=== PATIENT | female | born 1990 | race Caucasian/White ===

== ENCOUNTER → 2019-03-17 15:22 | Outpatient (CLI) | payer BC, SELFPAY ==
--- NOTE | 2019-03-17 15:25 | CT_ITS ---
STUDY: CT CHEST WITH CONTRAST REASON FOR EXAM: Female, 28 years old. Shortness of breath with exertion history of asthma RADIATION DOSAGE (If Supplied By Facility): CTDIvol = ( 14.94 ) mGy, DLP = ( 1082.08 ) mGycm TECHNIQUE: Transaxial imaging was performed following intravenous administration of 75 IV Isovue 300. Multiplanar coronal and sagittal images were reformatted. Individualized dose optimization techniques were used for this CT. COMPARISON: None. FINDINGS: There is no focal consolidation pleural effusion pulmonary edema or pneumothorax. There is no demonstrated pleural abnormality. Normal heart and pericardium. There is minimal residual thymus material. Normal hilar regions. Normal enhanced pulmonary arteries. Normal aorta arch and descending thoracic aorta. Normal osseous structures. There is no demonstrated abnormality of the visualized upper abdomen. CT/Chest WITH Contrast IMPRESSION: Normal enhanced CT Chest examination. Electronically Signed: Leatha Richmond MD at 1:09 EDT Tel , Service support ,
--- NOTE | 2019-03-17 15:25 | CT_ITS ---
STUDY: CT SOFT TISSUE NECK WITH CONTRAST REASON FOR EXAM: Female, 28 years old. Shortness of breath with exertion RADIATION DOSAGE (If Supplied By Facility): CTDIvol = ( 14.94 ) mGy, DLP = ( 1082.08 ) mGycm TECHNIQUE: The patient was scanned in a multi-detector CT scanner. High resolution transaxial imaging was performed following intravenous administration of 75 IV Isovue 300. Sagittal and coronal images were reconstructed. Individualized dose optimization techniques were used for this CT. COMPARISON: None. FINDINGS: Normal bilateral parotid glands. Normal bilateral adjunct professor of voice spaces. Normal bilateral parapharyngeal spaces. Normal bilateral carotid spaces. Normal bilateral sublingual and submandibular glands and spaces. Normal visualized nasopharynx. Normal retropharyngeal space. Normal perivertebral space. Normal visualized bilateral faucial tonsils. The visualized tongue, tongue base and oropharynx are normal. The visualized cervical lymph nodes (levels I-) are within normal size limits, and maintain normal morphology. There is no demonstrated solid or cystic mass lesion. There is no abnormal contrast enhancement. Normal epiglottis, bilateral vallecula and hypopharynx. The pre-epiglottic and paraglottic adipose spaces are normal. Normal visualized bilateral piriform sinuses, aryepiglottic folds, vocal cords, and arytenoid-cricoid articulations. There is slight narrowing of the trachea in the subglottic region measuring 9 mm AP versus just below this level measuring 1.3 cm. Normal bilateral lobes of the thyroid gland. Normal visualized pulmonary apices. Normal visualized paranasal sinuses. Normal visualized cervical spine. CT/Soft Tissue Neck WITH Contrast IMPRESSION: Appearance of slight subglottic tracheal narrowing as detailed above. Remainder the exam is within normal limits Electronically Signed: Levar Matthews DO at 16:42 EDT Tel , Service support ,
== END ==
PROVIDERS: Family Provider Family Medicine; PCP Family Medicine; Referring Provider Internal Medicine Pulmonary Disease; Visit Provider Internal Medicine Pulmonary Disease
DX: R06.00 Dyspnea, unspecified (principal); J38.6 Stenosis of larynx
CPT/HCPCS: 70491; 71260; Q9967

== ENCOUNTER 2019-03-19 10:46 | Day surgery (SDC) | payer BC, SELFPAY ==
[2019-03-19] VITALS (9 sets, daily range): BP systolic 89–121; BP diastolic 53–84; PULSE 87–117; RESP 16–18; TEMP 36.6–36.9; O2SAT 95–100; BMI 27.1
[2019-03-19 11:03] LABS: Internal QC Validated? YES +Cl - CLEAR BKGD
[2019-03-19 11:06] LABS: Pregnancy, Urine Negative Negative
--- NOTE | 2019-03-19 12:06 | SUR.OPER ---
DR. WEST IN ENDO ROOM OBSERVING CASE.
--- NOTE | 2019-03-19 13:09 | OP.ENDO_ITS ---
Patient Name: Misty Tomlin Procedure Date: 03/19/2019 11:29 AM Date of : 1990 Age: 28 Procedure: Bronchoscopy Indications: Suspicious trachea lesion Providers: Robert Lee MD Referring MD: Filiberto Schulte Medicines: Lidocaine applied to nares and subglottic space, Albuterol nebulizer 2.5 mg Complications: No immediate complications Procedure: Pre-Anesthesia Assessment: - A History and Physical has been performed. Patient meds and allergies have been reviewed. The risks and benefits of the procedure and the sedation options and risks were discussed with the patient. All questions were answered and informed consent was obtained. Patient identification and proposed procedure were verified prior to the procedure by the physician. Mental Status Examination: alert and oriented. Airway Examination: normal oropharyngeal airway. Respiratory Examination: clear to auscultation. CV Examination: normal. ASA Grade Assessment: I - A normal healthy patient. After reviewing the risks and benefits, the patient was deemed in satisfactory condition to undergo the procedure. The anesthesia plan was to use monitored anesthesia care (MAC). Immediately prior to administration of medications, the patient was re-assessed for adequacy to receive sedatives. The heart rate, respiratory rate, oxygen saturations, blood pressure, adequacy of pulmonary ventilation, and response to care were monitored throughout the procedure. The physical status of the patient was re-assessed after the procedure. After I obtained informed consent, the scope was passed under direct vision. Throughout the procedure, the patient's blood pressure, pulse, and oxygen saturations were monitored continuously. The bronchoscope was introduced through the mouth and advanced to the tracheobronchial tree of both lungs. Findings: Trachea/Nay Abnormalities: Erythema was found in the upper trachea. Erythema was found in the subglottic area. Impression: - Suspicious trachea lesion - Erythema was present in the upper trachea. - Erythema was present in the subglottic area. - No specimens collected. - A stricture was found. The lesion has a benign appearance. - Upper tracheal ring noted w/ dynamic narrowing. Looked to be below the Cricoid. Small web seen. Area was bleeding after scope passed and pt coughed Recommendation: - The patient will be observed post-procedure, until all discharge criteria are met. - Await test results. Procedure Code(s): --- Professional --- 59626, Bronchoscopy, rigid or flexible, including fluoroscopic guidance, when performed; diagnostic, with cell washing, when performed (separate procedure) Diagnosis Code(s): --- Professional --- J98.4, Other disorders of lung R09.89, Other specified symptoms and signs involving the circulatory and respiratory systems R93.8, Abnormal findings on diagnostic imaging of other specified body structures CPT copyright 2017 [employer]. All rights reserved. The codes documented in this report are preliminary and upon sled maker review may be revised to meet current compliance requirements. MD Robert Soler MD 03/19/2019 1:08:48 PM This report has been signed electronically. Number of Addenda: 0 Note Initiated On: 03/19/2019 11:29 AM
== END 2019-03-19 14:30 | disposition home or self-care (01) ==
LOC: EN 10:47 → AC 10:49
PROVIDERS: Anesthesiology; Family Provider Family Medicine; PCP Family Medicine; Referring Provider Family Medicine; Visit Provider Internal Medicine Pulmonary Disease
PROC: 0BJ08ZZ Inspection of Tracheobronchial Tree, Via Natural or Artificial Opening Endoscopic (ICD-10-PCS; CPT 31622; principal; 2019-03-19 11:45)
DX: J98.4 Other disorders of lung (principal); R06.1 Stridor; J30.9 Allergic rhinitis, unspecified; R09.89 Other specified symptoms and signs involving the circulatory and respiratory systems; Z79.899 Other long term (current) drug therapy
CPT/HCPCS: 00520; 31622; 81025; J7120; J2405

== ENCOUNTER → 2022-05-25 | Outpatient (CLI) | payer BC, OTHER, SELFPAY ==
[2022-05-25 15:06] LABS: Absolute Lymphocyte Count 2.89 X10^3/uL (0.83-4.51); Absolute Neutrophil Count 8.5 X10^3/uL (2.0-7.7); Basophil# 0.03 X10^3/uL; Basophil% 0.2 % (0-1); Eosinophil# 0.07 X10^3/uL; Eosinophils% 0.6 % (0-5); Hematocrit 37.3 % (37-47); Hemoglobin 12.5 g/dL (12.0-15.0); Lymphocyte # 2.89 X10^3/ul (0.83-4.51); Lymphocyte % 23.9 % (19-41); Mean Corp Hgb Conc 33.5 g/dL (32-36); Mean Corpuscular Hgb 29.8 pg (27.0-32.0); Mean Corpuscular Volume 88.8 fL (81-99); Mean Platelet Vol. 10.3 fl (6.2-12.0); Monocyte# 0.59 X10^3/uL; Monocyte% 4.9 % (0-10); NRBC Flagged by Analyzer 0 % (0-5); Neutrophil # 8.45 X10^3/uL (2.7-7.7); Neutrophil % 70.1 % (47-70); Platelet Count 288 K/mm3 (150-450); RBC Distribution Width CV 12.1 % (11.6-14.6); RBC Distribution Width SD 38.9 fl (35.1-43.9); White Blood Count 12.1 K/mm3 (4.4-11.0)
[2022-05-25 16:23] LABS: HIV - WCH Non-Reactive (Nonreactive); Hepatitis B Surface Antigen Non-Reactive (Nonreactive); Hepatitis C Antibody Non-Reactive (Nonreactive); Rubella IgG Reactive (Nonreactive); Syphilis Antibodies Non-reactive
[2022-05-25 17:20] LABS: Amphetamine Urine VISTA NEGATIVE (<1000 ng/mL); Barbiturate Urine VISTA NEGATIVE (< 200 ng/mL); Benzodiazepine Urine VISTA NEGATIVE (< 200 ng/mL); Cocaine Urine VISTA NEGATIVE (< 300 ng/mL); Ecstacy Urine VISTA NEGATIVE (< 500 ng/mL); Methadone Urine VISTA NEGATIVE (< 300 ng/mL); PCP Urine VISTA NEGATIVE (< 25 ng/mL); THC Urine VISTA NEGATIVE (< 50 ng/mL); Vista UDS pH Range 7
[2022-05-30 04:07] LABS: Chlamydia By Nucleic Acid AMP Negative (Negative)
[2022-05-30 17:51] LABS: Gonococcus By Nucleic Acid AMP Negative (Negative)
[2022-06-06 13:23] LABS: HPV Genotype 16, Aptima Negative (Negative)
[2022-06-06 17:54] LABS: HPV APTIMA, High Risk Positive (Negative); HPV Genotype 18,45 Aptima Negative (Negative)
== END | disposition home or self-care (01) ==
PROVIDERS: PCP Family Medicine; Visit Provider Obstetrics & Gynecology
DX: Z34.81 Encounter for supervision of other normal pregnancy, first trimester (principal); Z12.4 Encounter for screening for malignant neoplasm of cervix
CPT/HCPCS: 36415; 80307; 85025; 86703; 86762; 86780; 86803; 86850; 86900; 86901; 87086; 87340; 87491; 87591; 87624; 88175; G0145

== ENCOUNTER → 2022-09-15 | Outpatient (CLI) | payer BC, OTHER, SELFPAY ==
[2022-09-15 15:44] LABS: Absolute Lymphocyte Count 2.31 X10^3/uL (0.83-4.51); Absolute Neutrophil Count 7.1 X10^3/uL (2.0-7.7); Basophil# 0.03 X10^3/uL; Basophil% 0.3 % (0-1); Eosinophil# 0.08 X10^3/uL; Eosinophils% 0.8 % (0-5); Hematocrit 31.3 % (37-47); Hemoglobin 10.2 g/dL (12.0-15.0); Lymphocyte # 2.31 X10^3/ul (0.83-4.51); Mean Corp Hgb Conc 32.6 g/dL (32-36); Mean Corpuscular Hgb 29.4 pg (27.0-32.0); Mean Corpuscular Volume 90.2 fL (81-99); Mean Platelet Vol. 10.5 fl (6.2-12.0); Monocyte# 0.47 X10^3/uL; Monocyte% 4.7 % (0-10); NRBC Flagged by Analyzer 0 % (0-5); Neutrophil # 7.13 X10^3/uL (2.7-7.7); Neutrophil % 70.8 % (47-70); Platelet Count 258 K/mm3 (150-450); RBC Distribution Width CV 13.2 % (11.6-14.6); RBC Distribution Width SD 43.3 fl (35.1-43.9); Red Blood Count 3.47 M/mm3 (4.2-5.4); White Blood Count 10.1 K/mm3 (4.4-11.0)
[2022-09-15 16:08] LABS: Glucose Challenge Gest 1H 50g 109 mg/dL (70-140)
[2022-09-15 16:42] LABS: HIV - WCH Non-Reactive (Nonreactive); Syphilis Antibodies Non-reactive
== END | disposition home or self-care (01) ==
LOC: LAB 15:10
PROVIDERS: PCP Family Medicine; Visit Provider Obstetrics & Gynecology
DX: O09.90 Supervision of high risk pregnancy, unspecified, unspecified trimester (principal); Z3A.00 Weeks of gestation of pregnancy not specified; Z13.1 Encounter for screening for diabetes mellitus
CPT/HCPCS: 36415; 82950; 85025; 86703; 86780

== ENCOUNTER → 2022-11-28 | Outpatient (CLI) | payer BC, OTHER, SELFPAY ==
[2022-11-28 16:30] LABS: Absolute Lymphocyte Count 2.64 X10^3/uL (0.83-4.51); Basophil# 0.03 X10^3/uL; Basophil% 0.3 % (0-1); Eosinophil# 0.05 X10^3/uL; Eosinophils% 0.4 % (0-5); Hemoglobin 10.1 g/dL (12.0-15.0); Lymphocyte # 2.64 X10^3/ul (0.83-4.51); Lymphocyte % 23.2 % (19-41); Mean Corp Hgb Conc 31.6 g/dL (32-36); Mean Corpuscular Hgb 28.6 pg (27.0-32.0); Mean Corpuscular Volume 90.7 fL (81-99); Mean Platelet Vol. 10.7 fl (6.2-12.0); Monocyte# 0.56 X10^3/uL; Monocyte% 4.9 % (0-10); NRBC Flagged by Analyzer 0 % (0-5); Neutrophil # 8.04 X10^3/uL (2.7-7.7); Neutrophil % 70.8 % (47-70); Platelet Count 224 K/mm3 (150-450); RBC Distribution Width CV 13.4 % (11.6-14.6); RBC Distribution Width SD 43.8 fl (35.1-43.9); Red Blood Count 3.53 M/mm3 (4.2-5.4); White Blood Count 11.4 K/mm3 (4.4-11.0)
== END | disposition home or self-care (01) ==
PROVIDERS: PCP Family Medicine; Referring Provider Nurse Practitioner Women's Health; Visit Provider Nurse Practitioner Women's Health
DX: O09.90 Supervision of high risk pregnancy, unspecified, unspecified trimester (principal); Z3A.00 Weeks of gestation of pregnancy not specified
CPT/HCPCS: 36415; 85025; 87081

== ENCOUNTER → 2022-12-13 | Outpatient (CLI) | payer BC, OTHER, SELFPAY ==
--- NOTE | 2022-12-13 18:18 | US_ITS ---
STUDY: SECOND AND THIRD TRIMESTER OBSTETRICAL ULTRASOUND - LIMITED REASON FOR EXAM: Female, 32 years old GROWTH LMP: PRIOR ULTRASOUND: None. TECHNIQUE: Transabdominal TECHNICAL QUALITY: Adequate. FINDINGS: There is a single intrauterine fetus. The fetus is in a cephalic presentation. There is demonstrated cardiac activity with a heart rate of 126 bpm. There is a normal amniotic fluid volume. The largest amniotic fluid pocket measures 4.3 x 3.5 cm. The amniotic fluid index (JEVON) is 14.3 cm. The placenta is posterior and not low-lying There are Grade 1 placental changes. The cervix measures 2.8 cm in length. BIOMETRY: BPD: 8.83 cm: 35 weeks, 5 days HC: 32.6 cm: 37 weeks, 2 days AC: 33.09 cm: 37 weeks, 0 days FL: 6.65 cm: 34 weeks, 2 days Age by LMP: 38 weeks, 6 days. TODD by LMP: December 21, 2022. age by current US: 36 weeks, 1 days. TODD by current US: February 08, 2023. Estimated weight: 2867 grams, +/- 430 grams, 12 percentile. US/OB Limited With Biometrics IMPRESSION: Viable intrauterine gestation approximately 36 weeks gestational age. No significant abnormality Electronically Signed: Dallas Slade MD at 20:32 EDT ,
== END | disposition home or self-care (01) ==
LOC: US 18:16
PROVIDERS: PCP Family Medicine; Visit Provider Registered Nurse
DX: Z36.89 Encounter for other specified antenatal screening (principal)
CPT/HCPCS: 76816

== ENCOUNTER 2022-12-22 18:58 | Inpatient (IN) | payer BC, OTHER, SELFPAY ==
[2022-12-22] VITALS (11 sets, daily range): BP systolic 111–134; BP diastolic 62–88; PULSE 86–104; TEMP 36.5–37; O2SAT 100; BMI 30.7
[2022-12-22 19:28] LABS: Absolute Lymphocyte Count 1.97 X10^3/uL (0.83-4.51); Absolute Neutrophil Count 11.7 X10^3/uL (2.0-7.7); Basophil# 0.02 X10^3/uL; Basophil% 0.1 % (0-1); Eosinophil# 0.04 X10^3/uL; Eosinophils% 0.3 % (0-5); Hematocrit 34.2 % (37-47); Lymphocyte # 1.97 X10^3/ul (0.83-4.51); Lymphocyte % 13.6 % (19-41); Mean Corp Hgb Conc 32.2 g/dL (32-36); Mean Corpuscular Hgb 28.6 pg (27.0-32.0); Mean Corpuscular Volume 88.8 fL (81-99); Mean Platelet Vol. 11.3 fl (6.2-12.0); Monocyte# 0.64 X10^3/uL; Monocyte% 4.4 % (0-10); NRBC Flagged by Analyzer 0 % (0-5); Platelet Count 250 K/mm3 (150-450); RBC Distribution Width CV 13.8 % (11.6-14.6); RBC Distribution Width SD 44.5 fl (35.1-43.9); Red Blood Count 3.85 M/mm3 (4.2-5.4); White Blood Count 14.5 K/mm3 (4.4-11.0)
[2022-12-22] MEDS: Lactated Ringers 1,000 ML 50 ML IV (19:30)
[2022-12-22] MEDS: Oxytocin 10 UNITS/ML Vial IM (19:53)
[2022-12-22] MEDS: Oxytocin 15 Units/NS 250ml 15 UNITS/250 ML IV.SOLN 83 UNITS IV (19:53)
[2022-12-22 20:01] LABS: Syphilis Antibodies Non-reactive
--- NOTE | 2022-12-22 20:04 | HP.PCM.OB_ITS ---
HPI - General General Date of Admission: 12/22/22 HPI Narrative NIKKY MENDOZA, is a 32 F who presents IAL delivers precipitously within an hour Maternal Data Information TODD Calculator Estimated Delivery Date Method Current WG Current Estimate 12/21/22 LMP (Certain) 40w 1d PFSH PFSH Medical History HPV test positive Hx of abnormal cervical Pap smear Idiopathic subglottic tracheal stenosis Seasonal allergies Home Medications vitamins no.163-iron bis-gly 20 mg-folate no.10 1 mg tablet (PNV Tabs 20-1) tab PO 05/23/22 [History Last Taken Unknown] Allergy/AdvReac Type Severity Reaction Status Date / Time No Known Allergies Allergy Verified 12/22/22 19:19 Family History no significant family his Surgical History no surgical history Social History adopted: No household members: spouse and children housing: house number of children: 2 current occupational status: employed 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 pets and animals: Yes (not managing litterbox) pets and animals: cat(s) and dog(s) history of recent travel: No sexually active: Yes Smoking Status: Never smoker alcohol intake: never substance use type: does not use well-balanced diet: about half the time caffeine: No eating out: 1-3 times/week during the past year weight has: remained stable what type of physical activity do you participate in: none nelly/gnosticist: Baptism seatbelt use: always do you feel safe at home: Yes additional social history: - 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 Date Name GA/Weeks Outcome Route Bth Weight Infant Gen Labor Lgth Anesthesia Del Locatn Provider FOB 12/20/17 Emir 38 live - full term 7#7oz Male 14 ho urs epidural Radha Talbot 12/26/20 Dora 39 live - full term 8#1oz Female 16 liz rs epidural Radha Talbot Visit Details Expected Delivery Route/Plan Labor Preferences- CB/BF classes: no labor support person: Antione labor intervention preferences: [] pain management options preferred: epidural cut cord/dad catch: cord : pump, feed PP control planned: yes discussed possible routes of delivery and associated risks: [] special requests: [] Plans Covid status: discussed Flu vaccine: discussed Tdap vaccine: given Rhogam: na LARC form signed: yes Problem list reviewed and updated with the most current plan of care details and appropriate orders placed. Relevant counseling for the gestational age provided. Continue routine care and follow up unless otherwise noted in visit notes/problem list details OB Flowsheet Initial Weight: Not Recorded Date -?-?-?-?-?-?-?-?-?-?-?-?- EGA Weight BP Urine Prot -?-?-?-?-?-?-?-?-?-?-?-?- Glucose FHR FuHt Pres Dilation -?-?-?-?-?-?-?-?-?-?-?-?- Effaced St Visit Note 05/25/22 -?-?-?-?-?-?-?-?-?-?-?-?- 10w 0d 168 lb 152/98 134/82 -?-?-?-?-?-?-?-?-?-?-?-?- 160 -?-?-?-?-?-?-?-?-?-?-?-?- SM- CRL cons 10w 0d with LMP 06/22/22 -?-?-?-?-?-?-?-?-?-?-?-?- 14w 0d 161 lb 4 oz 122/78 Nega tive -?-?-?-?-?-?-?-?-?-?-?-?- Negative 169 -?-?-?-?-?-?-?-?-?-?-?-?- JV- pt here for routine ob exam but also has a moderate throat infection that is not covid or strep. her pcp put her on abx and asking permission to start a s teroid dose pack. medrol sent to pharmacy 07/21/22 -?-?-?-?-?-?-?-?-?-?-?-?- 18w 1d 167 lb 2 oz 115/73 Nega tive -?-?-?-?-?-?-?-?-?-?-?-?- Negative 159 -?-?-?-?-?-?-?-?-?-?-?-?- JV- no lof, vagi nal bleeding, or cramping. feels much better. wants baby's gender to be secret. 08/18/22 -?-?-?-?-?-?-?-?-?-?-?-?- 22w 1d 171 lb 8 oz 110/73 Nega tive -?-?-?-?-?-?-?-?-?-?-?-?- Negative 155 -?-?-?-?-?-?-?-?-?-?-?-?- JV- had scan don e today. waiting on results. no lof, vaginal bleeding, cramping 09/15/22 -?-?-?-?-?-?-?-?-?-?-?-?- 26w 1d 179 lb 8 oz 114/74 Nega tive -?-?-?-?-?-?-?-?-?-?-?-?- Negative 147 -?-?-?-?-?-?-?-?-?-?-?-?- JV- GCT reviewed with patient, but 1 hr is still pending. pt to take iron OTC for hg 10 10/13/22 -?-?-?-?-?-?-?-?-?-?-?-?- 30w 1d 180 lb 113/72 Negative -?-?-?-?-?-?-?-?-?-?-?-?- Negative 134 -?-?-?-?-?-?-?-?-?-?-?-?- JV- no lof, vagi nal bleeding, or dec fm. no complaints other than slight worsening of trachea narrowing. SHe will see her ENT. iron was giving her an upset stomach. will buy slow FE or liquid chlorophyll. 10/26/22 -?-?-?-?-?-?-?-?-?-?-?-?- 32w 0d 183 lb 108/69 Negative -?-?-?-?-?-?-?-?-?-?-?-?- Negative 135 31 -?-?-?-?-?-?-?-?-?-?-?-?- JV- no complaint s today. has appt for tracheal narrowing on 11/10. 11/07/22 -?-?-?-?-?-?-?-?-?-?-?-?- 33w 5d 177 lb 6 oz 120/64 Nega tive -?-?-?-?-?-?-?-?-?-?-?-?- Negative 141 33 -?-?-?-?-?-?-?-?-?-?-?-?- MH-No VB, LOF. G ood FM. Note weight loss:states had bad GI bug past week. Feels better now. Growth US with MFM today per Dr Daigle. 11/20/22 -?-?-?-?--?-?-?-?-?-?-?-?- 35w 4d 180 lb 116/68 Negative -?-?-?-?-?-?-?-?-?-?-?-?- Negative 161 35 -?-?-?-?-?-?-?-?-?-?-?-?- MH-No VB, LOF. G ood FM. Had tracheal dilation last week-doing well, sx resolved. 11/28/22 -?-?-?-?-?-?-?-?-?-?-?-?- 36w 5d 181 lb 8 oz 117/74 Nega tive -?-?-?-?-?-?-?-?-?-?-?-?- Negative 145 35 Cephalic -?-?-?-?-?-?-?-?-?-?-?-?- JV- pt is status post tracheal dilation procedure that she has had since I last saw her. This was done at [facility] and we still need records. GBS collected. 12/08/22 -?-?-?-?-?-?-?-?-?-?-?-?- 38w 1d 178 lb 6 oz 114/71 Nega tive -?-?-?-?-?-?-?-?-?-?-?-?- Negative 135 37 Cephalic -?-?-?-?-?-?-?-?-?-?-?-?- SM- no vb lof go od fm no regular ctx 12/13/22 -?-?-?-?-?-?-?-?-?-?-?-?- 38w 6d 178 lb 6 oz 112/72 Nega tive -?-?-?-?-?-?-?-?-?-?-?-?- Negative 150 36.5 Cephalic -?-?-?-?-?-?-?-?-?-?-?-?- LC- no vb/ctx/lo f. good fm. size less than dates, limited growth us ordered. 12/22/22 -?-?-?-?-?-?-?-?-?-?-?-?- 40w 1d 179 lb 118/80 Negative -?-?-?-?-?-?-?-?-?-?-?-?- Negative 138 38 Cephalic 1 .5 -?-?-?-?-?-?-?-?-?-?-?-?- 50 -3 LC- no con cerns, no regular ctx. good fm, no vb/lof. 41 week IOL scheduled LC- no concerns, no regular ctx. good fm, no vb/lof. 41 week IOL scheduled. membranes swept t elvira. LC- no concerns, no regular ctx. good fm, no vb/lof. 41 week IOL scheduled 12/28/2022 at 7am. membranes swept today. 12/22/22 -?-?-?-?-?-?-?-?-?-?-?-?- 40w 1d 179 lb 134/88 128/74 -?-?-?-?-?-?-?-?-?-?-?-?- -?-?-?-?-?-?-?-?-?-?-?-?- NST FHR Rate Baby A Baseline: 110 Variability:: Moderate Accelerations:: 15 x 15 Decelerations:: None NST Reactive:: Yes FHR Category:: Category I Uterine Activity:: q3-5 ROS Constitutional Constitutional: Reports systems reviewed and no addt'l complaints, except as documented ENT HEENT: Reports systems reviewed and no addt'l complaints, except as documented Cardiovascular Cardiovascular: Reports systems reviewed and no addt'l complaints, except as documented Respiratory/Chest Respiratory/Chest: Reports systems reviewed and no addt'l complaints, except as documented Gastrointestinal Gastrointestinal: Reports systems reviewed and no addt'l complaints, except as documented and nausea; Denies abdominal pain Genitourinary Genitourinary: Reports systems reviewed and no addt'l complaints, except as documented, contractions Details: present and frequency (regular ) and movement Details: present Musculoskeletal Musculoskeletal: Reports systems reviewed and no addt'l complaints, except as documented Integumentary Integumentary: Reports as per HPI Neurologic Neurologic: Reports systems reviewed and no addt'l complaints, except as documented Endocrine Endocrinology: Reports systems reviewed and no addt'l complaints, except as documented Vital Signs Vital Signs Vital Signs: 12/22/22 18:51 12/22/22 18:51 12/22/22 18:51 Temperature Temperature Source Pulse Rate 104 H Blood Pressure 134/88 H BP Systolic 134 BP Diastolic 88 Pulse Ox 100 12/22/22 18:56 12/22/22 18:56 12/22/22 19:59 Temperature 97.7 F L Temperature Source Temporal Pulse Rate Blood Pressure 128/74 H BP Systolic 128 BP Diastolic 74 Pulse Ox 12/22/22 19:59 Temperature Temperature Source Pulse Rate 101 H Blood Pressure BP Systolic BP Diastolic Pulse Ox Weight Weight: 179 lb Body Mass Index (BMI) 30.7 Physical Exam Const alert, oriented x3 and healthy appearing Constitutional Narrative: uncomfortable with contractions HEENT normocephalic and moist oral mucous membranes Head and Scalp: atraumatic Neck full ROM, no lymphadenopathy, supple and thyroid normal General: trachea midline Thyroid: thyroid normal Lymph Lymphatic: no lymphadenopathy noted Chest inspection of chest normal Resp normal respiratory effort Cardio regular rate GI normal to inspection, nondistended, normoactive bowel sounds, soft to palpation and non-tender Inspection: gravid external exam normal Bimanual Exam - Vag & Uterus: uterus non-tender Manual OB Exam: estimated gestational size appropriate, presentation cephalic, dilated, effaced and station Extremity normal to inspection General Extremity: Negative for edema Skin no rashes or lesions noted Neuro deep tendon reflexes 2+ bilaterally Motor Exam: strength 5/5 throughout and clonus absent Psych mental status grossly normal Labs Labs Labs: Blood Type AB POSITIVE Antibody Screen NEGATIVE Hct 34.2 % (37-47) L Hgb 11.0 g/dL (12.0-15.0) L Obstetrics US Syphilis Total Ab Non-reactive Rubella IgG Antibody Reactive (Nonreactive) Hep Bs Antigen Non-Reactive (Nonreactive) Chlamydia DNA (ROBB) Negative (Negative) Neisseria gonorrhoeae DNA (ROBB) Negative (Negative) HIV 1&2 Antibody Non-Reactive (Nonreactive) Glucose 1 Hr 50 gm 109 mg/dL (70-140) Assessment & Plan (1) Supervision of high risk , antepartum: COMMENT: [id number], TODD 12/21/22, PC Emir, Dora, Antione (2) HPV test positive: COMMENT: neg. pap +HPV (3) : QUALIFIERS: Weeks of gestation: 40 weeks Qualified Code(s): Z3A.40 - 40 weeks gestation of COMMENT: GBS Negative, declined genetic & Carrier testing. nl anatomy rpt growth US 11/07 MFM-Normal. Was rec per Dr Daigle (4) Congenital narrowed trachea: COMMENT: pt has undergone stretching of the trachea in the past. She states that during the condition gets worse. she is going to [facility] ENT at [facility]: update: had throat dilation 11/14: sx improved. (5) Size of fetus inconsistent with dates in third trimester: COMMENT: growth scan: 12/13 12%. normal JEVON. consulted with JV. continue routine care. (6) Active labor at term: PLAN: Plan exp management
--- NOTE | 2022-12-22 20:06 | OP.PCM_ITS ---
Assessment & Plan (1) Active labor at term: (2) Size of fetus inconsistent with dates in third trimester: COMMENT: growth scan: 12/13 12%. normal JEVON. consulted with JV. continue routine care. (3) Congenital narrowed trachea: COMMENT: pt has undergone stretching of the trachea in the past. She states that during the condition gets worse. she is going to see her ENT at f: update: had throat dilation 11/14: sx improved. (4) HPV test positive: COMMENT: neg. pap +HPV (5) Supervision of high risk , antepartum: COMMENT: [id number], TODD 12/21/22, PC Emir, Dora, Antione (6) : QUALIFIERS: Weeks of gestation: 40 weeks Qualified Code(s): Z3A.40 - 40 weeks gestation of COMMENT: GBS Negative, declined genetic & Carrier testing. nl anatomy rpt growth US 11/07 MFM-Normal. Was rec per Dr Daigle (7) Vaginal delivery: COMMENT: SM IAL 40 precipitous delivery boy Maternal Data Information TODD Calculator Estimated Delivery Date Method Current WG Current Estimate 12/21/22 LMP (Certain) 40w 1d Vaginal Delivery Operative Information Date of Procedure: 12/22/22 Pre-Operative Diagnosis: see a/p diagnoses Post-Operative Diagnosis: same Surgery / Procedure Performed: Spontaneous Vaginal Delivery Type of Anesthesia: Local with 1% Lidocaine Special Medications: none Estimated Blood Loss: 200 Fluids Replaced: crystalloid Findings Description of Procedure: Patient began pushing and delivered the head in the JERONIMO presentation. The head was delivered atraumatically . The anterior and posterior shoulders delivered without complication followed by the rest of the infant and the infant was placed on the maternal abdomen. Delayed cord clamping was employed for approximately 60 seconds. Cord was clamped and cut and gentle traction was applied to the cord and the placenta delivered spontaneously immediately following it was noted to be intact with three-vessel cord. The perineum and vagina were inspected and noted to have a first degree perineal laceration which was repaired in the usual fashion with 3-0 vicryl rapide. . EBL was 200 cc. Patient and infant tolerated delivery well. Amniotic Fluid Description: Clear Placental Delivery Description: Spontaneous Placenta Disposition: [facility] Cord Vessel Description: 3 Vessels Cord Entanglement: None Delayed Cord Clamping: Yes Post Vaginal Delivery Medications Given After Delivery: IM Pitocin Episiotomy Description: None Complication Complications: None Procedures Urinary/Genital [id number]: [id number] Vaginal Delivery [facility]
--- NOTE | 2022-12-22 20:07 | DCINST_ITS ---
Discharge Instructions Diet Discharge Diet: No restrictions Activity Discharge Activity: Return to Normal Activity, May Drive, May Shower and May Take a Tub Bath (in 4 weeks) May resume sexual activity in: 6-8 weeks (after seen by OB provider) Weight Bearing Status: Full weight bearing Lifting Restrictions: none Dressing / Incision Call your doctor if you observe: Fever of 101 or Higher, Inability to urinate, Using more than 1 pad per hour (for more than 2 hours in a row or more), Shortness of breath, Dizziness, Chest pain and - (headache not controlled with tylenol, change in vision) Follow Up Care When: in 6 weeks for visit, call the office to make the appointment. If you had elevated blood pressures call the office to be seen within 1 week. Test Results: Test results from this visit will be discussed in further detail at your follow- up appointment, if applicable. Discharge Plan Admission Admit Date/Time: 12/22/22 18:58 Attending Provider: Raquel Ta Primary Care Provider: Kj Fernando Discharge Orders/Prescriptions Prescriptions: No Action PNV Tabs 20-1 20 mg iron- 1 mg tablet PO Referrals / Follow Up: Kj Fernando DO [Primary Care Provider] -
[2022-12-23 00:11] VITALS: BP 108/58; PULSE 99; RESP 18
[2022-12-23 04:28] VITALS: BP 101/57; PULSE 84; RESP 18
--- NOTE | 2022-12-23 08:21 | PCM.PN.OB ---
Subjective Subjective Patient doing well without complaints. Tolerating PO. Ambulating and voiding without difficulty. feeding well. Denies chest pain, shortness of breath, calf pain/swelling, fevers, chills, lightheadedness. Objective Data Objective Data Vital Signs: Vital Signs Temp Pulse Resp BP Pulse Ox O2 Del Method 98.6 F 84 18 101/57 L 100 Room Air 12/22/22 19:59 12/23/22 04:28 12/23/22 04:28 12/23/22 04:28 12/22/22 18:51 12/23/22 04:28 Oxygen Delivery Method Room Air Weight: 179 lb Body Mass Index (BMI) 30.7 Intake & Output: Intake and Output for Last 24 Hours 12/21/22 12/22/22 12/23/22 23:59 23:59 23:59 Intake Total 262.5 / 262.5 Output Total 450 / 450 Balance -187.5 / -187.5 Lab / Micro Data Result Diagrams: 12/22/22 19:10 Labs: Laboratory Results - last 24 hr 12/22/22 19:10: WBC 14.5 H, RBC 3.85 L, Hgb 11.0 L, Hct 34.2 L, MCV 88.8, MCH 28.6, MCHC 32.2, RDW Std Deviation 44.5 H, RDW Coeff of Sanchez 13.8, Plt Count 250, MPV 11.3, Immature Gran % (Auto) 0.600, Neut % (Auto) 81.0 H, Lymph % (Auto) 13.6 L, Levy % (Auto) 4.4, Eos % (Auto) 0.3, Baso % (Auto) 0.1, Absolute Neuts (auto) 11.7 H, Absolute Lymphs (auto) 1.97, Nucleated RBC % 0 12/22/22 19:10: Blood Type AB POSITIVE, Antibody Screen NEGATIVE 12/22/22 19:10: Syphilis Total Ab Non-reactive ROS Constitutional Constitutional: Reports systems reviewed and no addt'l complaints, except as documented Cardiovascular Cardiovascular: Reports systems reviewed and no addt'l complaints, except as documented Respiratory/Chest Respiratory/Chest: Reports systems reviewed and no addt'l complaints, except as documented Gastrointestinal Gastrointestinal: Reports systems reviewed and no addt'l complaints, except as documented Physical Exam Const alert, oriented x3 and no apparent distress HEENT Head and Scalp: atraumatic Resp normal respiratory effort GI soft to palpation and non-tender Bimanual Exam - Vag & Uterus: uterus non-tender Uterus Palpation: uterus fundus firm (below Umbilicus) Assessment & Plan (1) Vaginal delivery: COMMENT: SM IAL 41 precipitous delivery boy (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 She states that during the condition gets worse. she is going to see her ENT at [facility]: update: had throat dilation 11/14: sx improved. PLAN: Plan s/p PPD # 1 1. routine post delivery care 2. breast feeding- support given 3. rh positive 4. rubella immune
[2022-12-23 09:03] VITALS: BP 130/87; PULSE 87; RESP 16; TEMP 36.4
[2022-12-23 11:35] VITALS: BP 116/69; PULSE 91; RESP 15; TEMP 36.4
[2022-12-23 16:03] VITALS: BP 94/58; PULSE 85; RESP 16; TEMP 36.4
[2022-12-23 20:00] VITALS: BP 112/67; PULSE 81; RESP 16; TEMP 37.2
== END 2022-12-23 21:05 | disposition home or self-care (01) | DRG 806 ==
LOC: WPOUT 19:01 → WP 20:07
PROVIDERS: Admitting Provider Obstetrics & Gynecology; PCP Family Medicine; Referring Provider Obstetrics & Gynecology; Visit Provider Obstetrics & Gynecology
DX: O62.3 Precipitate labor (principal); Z37.0 Single live birth; Q32.1 Other congenital malformations of trachea; O26.843 Uterine size-date discrepancy, third trimester; O70.0 First degree perineal laceration during delivery; O99.892 Other specified diseases and conditions complicating childbirth; Z3A.40 40 weeks gestation of pregnancy
CPT/HCPCS: 59025; 59050; 85025; 86780; 86850; 86900; 86901; 99221; J7120; G0378

== ENCOUNTER → 2024-02-25 | Outpatient (CLI) | payer BC, OTHER, SELFPAY ==
[2024-02-27 14:10] LABS: HPV APTIMA, High Risk Negative (Negative)
== END | disposition home or self-care (01) ==
LOC: LABSPEC 11:51
PROVIDERS: PCP Family Medicine; Referring Provider Obstetrics & Gynecology; Visit Provider Obstetrics & Gynecology
DX: Z12.4 Encounter for screening for malignant neoplasm of cervix (principal)
CPT/HCPCS: 87624; 88175; G0145

== ENCOUNTER → 2025-05-18 | Outpatient (CLI) | payer BC, OTHER, SELFPAY ==
[2025-05-26 07:08] LABS: HPV APTIMA, High Risk Negative (Negative)
== END | disposition home or self-care (01) ==
LOC: LABSPEC 16:16
PROVIDERS: PCP Family Medicine; Referring Provider Obstetrics & Gynecology; Visit Provider Obstetrics & Gynecology
DX: Z12.4 Encounter for screening for malignant neoplasm of cervix (principal)
CPT/HCPCS: 87624; 88175; G0145